=== PATIENT | male | born 1990 | race African-American/Black ===

== ENCOUNTER 2025-01-04 13:21 | Inpatient (IN) | payer OTHER ==
[2025-01-04] MEDS ORDERED: ALBUTEROL SO4 HFA INHALER IH PRN (14:56)
[2025-01-04] MEDS ORDERED: LOPERAMIDE HCL 2 MG CAPSULE PO PRN (15:00)
[2025-01-04] MEDS ORDERED: POLYETHYLENE GLYCOL (HEALTHYLAX) 3350 17 GM PACKET PO PRN (15:00)
[2025-01-04] MEDS ORDERED: BENZOCAINE/MENTHOL (CHLORASEPTIC ) LOZENGE MM PRN (15:00)
[2025-01-04] MEDS ORDERED: guaiFENesin 600 MG TABLET.ER (FP) PO PRN (15:00)
[2025-01-04] MEDS ORDERED: BENZONATATE 200 MG CAPSULE PO PRN (15:00)
[2025-01-04] MEDS ORDERED: MAGNESIUM HYDROX 2400MG/30ML ORAL SUSPENSION 30 ML CUP PO PRN (15:00)
[2025-01-04] MEDS: GABAPENTIN 300 MG CAPSULE PO SCH (21:39)
[2025-01-04] MEDS: THIAMINE 100 MG TABLET PO SCH (21:39)
[2025-01-04] MEDS: MELATONIN 5 MG TABLETS PO SCH (21:39)
[2025-01-05] MEDS: PRENATAL VITAMINS W/ FOLIC ACID TABLET (FP) PO SCH (05:47)
[2025-01-06] MEDS: hydrOXYzine PAMOATE 25 MG CAPSULE (FP) PO PRN (17:24)
[2025-01-08] MEDS: MAG HYDROX/AL HYDROX/SIMETH 30 ML UNIT-DOSE CUP PO PRN (07:30)
[2025-01-08] MEDS: QUEtiapine FUMARATE 100 MG TABLET (FP) PO SCH (10:32)
[2025-01-08] MEDS: MIRTAZAPINE 15 MG TABLET (FP) PO SCH (21:28)
[2025-01-09] MEDS: ONDANSETRON *ODT* 4 MG TABLET SL PRN (10:47)
[2025-01-11] MEDS ORDERED: BACLOFEN 10 MG TABLET (FP) PO SCH ×2 (14:00)
[2025-01-11] MEDS: METHOCARBAMOL 500 MG TABLET PO PRN (14:07)
[2025-01-11] MEDS: CALAMINE 8% TOPICAL LOTION 177 ML BOTTLE TP PRN (14:08)
[2025-01-11] MEDS: NICOTINE POLACRILEX 2 MG GUM BUC PRN (19:32)
[2025-01-18] MEDS: IBUPROFEN 600 MG TABLET (FP) PO PRN (15:06)
[2025-01-22] MEDS: ACETAMINOPHEN 325 MG TABLET (FP) PO PRN (13:10)
[2025-01-25] MEDS: IBUPROFEN 400 MG TABLET (FP) PO PRN (15:56)
[2025-01-27 05:42] VITALS: RESP 16
[2025-02-02 05:56] VITALS: BP 111/66; PULSE 66; TEMP 97.3
== END 2025-02-02 08:47 | disposition home or self-care (01) | DRG 772 ==
LOC: YASAS 13:21 → Y3NR 13:22 → Y3W 01-05 10:09
PROVIDERS: ADMIT Psychiatry & Neurology Pain Medicine; ATTEND Psychiatry & Neurology Pain Medicine
PROC: HZ42ZZZ Group Counseling for Substance Abuse Treatment, Cognitive-Behavioral (ICD-10-PCS; principal; 2025-01-04)
DX: F11.20 Opioid dependence, uncomplicated (principal); F14.20 Cocaine dependence, uncomplicated; F17.210 Nicotine dependence, cigarettes, uncomplicated; F25.9 Schizoaffective disorder, unspecified; F41.9 Anxiety disorder, unspecified; F32.A Depression, unspecified; G47.00 Insomnia, unspecified; M54.50 Low back pain, unspecified; G89.29 Other chronic pain; R21 Rash and other nonspecific skin eruption
CPT/HCPCS: 36415; 82962; 86803; 87522; Q0162